=== PATIENT | female | born 1960 | race Caucasian/White ===

== ENCOUNTER 2017-06-21 11:00 | Inpatient (IN) | payer BC, OTHER ==
[2017-06-20 09:00] VITALS: BMI 27.4
[2017-06-26 07:21] LABS: URINE APPEARANCE SLCLOUDY; URINE BILIRUBIN NEGATIVE (NEGATIVE); URINE BLOOD NEGATIVE (NEGATIVE); URINE COLOR YELLOW; URINE GLUCOSE (UA) NEGATIVE (NEGATIVE); URINE KETONE NEGATIVE (NEGATIVE); URINE LEUK ESTERASE NEGATIVE (NEGATIVE); URINE NITRITE NEGATIVE (NEGATIVE); URINE PROTEIN NEGATIVE (NEGATIVE); URINE UROBILINOGEN NEGATIVE mg/dL (0.2-1.0)
[2017-06-26] MEDS ORDERED: BUPIVACAINE HCL/PF 0.5% (5MG/ML) 10 ML VIAL ONE ×2 (07:21→09:08)
[2017-06-26] MEDS ORDERED: THROMBIN (BOVINE) 5,000 UNIT VIAL TP ONE ×2 (07:21→09:08)
[2017-06-26] MEDS ORDERED: GENTAMICIN SO4 80 MG/2 ML VIAL ONE (07:21)
[2017-06-26] MEDS ORDERED: SUCCINYLCHOLINE CHLORIDE 200 MG/10 ML VIAL ONE (07:44)
[2017-06-26] MEDS ORDERED: fentaNYL CITRATE 250 MCG/5 ML VIAL ONE (07:44)
[2017-06-26] MEDS ORDERED: MIDAZOLAM HCL 2 MG/2 ML SINGLE DOSE VIAL ONE (07:45)
[2017-06-26] MEDS ORDERED: ROCURONIUM BROMIDE 50 MG/5 ML VIAL ONE ×2 (07:45→11:30)
--- NOTE | 2017-06-26 08:16 | HP ---
History & Physical Update - History History: No Change - Physical Physical: No Change - Assessment Assessment: No Change - Plan Plan: No Change
[2017-06-26] MEDS ORDERED: VANCOMYCIN 1,000 MG VIAL (RESTRICTED TO ID ONLY) ONE (08:36)
[2017-06-26] MEDS ORDERED: ceFAZolin SODIUM 1 GM VIAL ONE ×3 (08:36→18:11)
[2017-06-26] MEDS ORDERED: ceFAZolin SODIUM 1 GM VIAL IVPB ONE (08:40)
[2017-06-26] MEDS ORDERED: VANCOMYCIN 1,000 MG VIAL (RESTRICTED TO ID ONLY) IVPB ONE (08:45)
[2017-06-26] MEDS ORDERED: DEXAMETHASONE SOD PHOSPHATE 4 MG/1 ML VIAL ONE (08:47)
[2017-06-26] MEDS ORDERED: ONDANSETRON 4 MG/2 ML VIAL ONE (08:47)
[2017-06-26] MEDS ORDERED: LIDOCAINE 1%/EPI 1:100000 (20 ML MULTI DOSE VIAL) INF ONE (08:54)
[2017-06-26] MEDS ORDERED: BACITRACIN 50,000 UNITS VIAL TP ONE (09:07)
[2017-06-26] MEDS ORDERED: LIDOCAINE 1%/EPI 1:100000 (20 ML MULTI DOSE VIAL) ONE (09:08)
[2017-06-26] MEDS ORDERED: HYDROmorphone HCL/PF 1 MG/ML VIAL (FOR PYXIS CHARGING ONLY) ONE (09:14)
[2017-06-26] MEDS ORDERED: HYDROmorphone HCL CARPU-JECT 2 MG/1 ML DISP.SYRIN ONE (09:16)
[2017-06-26] MEDS ORDERED: BUPIVACAINE HCL/PF 0.5% (5MG/ML) 10 ML VIAL IJ ONE (09:34)
[2017-06-26] MEDS ORDERED: DESFLURANE GAS 240 ML BOTTLE IH ONE (12:58)
[2017-06-26] MEDS ORDERED: GLYCOPYRROLATE 0.2 MG/1 ML VIAL ONE (13:38)
[2017-06-26] MEDS ORDERED: NEOSTIGMINE METHYLSULFATE 0.5 MG/ML - 10 ML MDV ONE (13:38)
--- NOTE | 2017-06-26 13:52 | OP ---
Operative Note - Note: Operative Date: 06/26/17 Pre-Operative Diagnosis: Cervical kyphosis Operation: Exploration of spinal fusion with removal of [place] Plate, C7-T1 osteotomies with removal of [place] Hardware, deformity correction and C2-T3 posterior fusion, Anterior approach for deformity correction and C7-T1 reconstruction with Peek Cage and anterior plating Implants: As above Surgeon: Sahil Ahn 1St Pressman: Liane Holder Anesthesiologist/VISUAL MERCHANDISING ASSISTANT: Migue Martinez Anesthesia: General Estimated Blood Loss (mls): 750 Drains & Tubes with Location: MILADY Drains, Volume Out (mls): 400 ([place]) Fluid Volume Replaced (mls): 3,300 Operative Report Dictated: Yes
--- NOTE | 2017-06-26 13:54 | SURG ---
Surgery Shale Planer Operator Helper Note Shale Planer Operator Helper: Liane Holder PA-C Date of Service: 06/26/17 Diagnosis: Cervical kyphosis Procedure: Exploration of spinal fusion with removal of [place] Plate, C7-T1 osteotomies with removal of [place] Hardware, deformity correction and C2-T3 posterior fusion , Anterior approach for deformity correction and C7-T1 reconstruction with Peek Cage and anterior plating I was present for the entirety of the operative procedure. For further detail, please refer to operative report. Visit type - Case Type Case Type: Scheduled Admission - New patient This patient is new to me today: Yes Date on this admission: 06/26/17
[2017-06-26] MEDS ORDERED: ONDANSETRON 4 MG/2 ML VIAL IVPUSH PRN (13:55)
[2017-06-26] MEDS ORDERED: LACTATED RINGERS SOLUTION 1,000 ML IV SCH ×2 (14:00→14:30)
[2017-06-26] MEDS ORDERED: HYDROmorphone *PCA* 10MG/50ML DISP.SYRIN PCA ONE (14:22)
[2017-06-26] MEDS ORDERED: PROMETHAZINE HCL 25 MG/1 ML VIAL IVPUSH PRN (14:23)
[2017-06-26] MEDS ORDERED: HYDROmorphone HCL CARPU-JECT 1 MG/1 ML DISP.SYRIN IVPUSH PRN (14:23)
[2017-06-26] MEDS: HYDROmorphone *PCA* 10MG/50ML DISP.SYRIN PCA SCH (14:40)
[2017-06-26 15:30] LABS: HEMATOCRIT 34.5 % (32.4-45.2); HEMOGLOBIN 11.3 GM/dL (10.7-15.3); MCH 31.2 pg (25.7-33.7); MCHC 32.8 g/dl (32.0-36.0); MEAN CELL VOLUME 95.2 fl (80-96); MEAN PLT VOLUME 7.8 fl (7.5-11.1); PLATELET COUNT 228 K/MM3 (134-434); RBC 3.62 M/mm3 (3.60-5.2); RDW 14.7 % (11.6-15.6); WHITE BLOOD COUNT 9.4 K/mm3 (4.0-10.0)
[2017-06-26] MEDS ORDERED: CEFAZOLIN 1 GM/D5W 50 ML IVPB SCH (18:00)
[2017-06-26] MEDS: CEFAZOLIN 1 GM PUSH 1 GM/10 ML DISP.SYRIN IVPUSH SCH (18:15)
[2017-06-26] MEDS ORDERED: ELECTROLYTE-148 SOLN 1,000 ML IV SCH (20:15)
[2017-06-26] MEDS ORDERED: PT OWN MED DRAWER 7, Y5N ONE (21:48)
[2017-06-26] MEDS ORDERED: PARoxetine HCL 20 MG TABLET (FP) PO SCH (22:00)
[2017-06-26] MEDS ORDERED: traZODone HCL 100 MG TABLET (FP) PO SCH (22:00)
--- NOTE | 2017-06-26 22:07 | CONSULT ---
Consult Consult Specialty:: Pulmonary Critical Care - History of Present Illness Chief Complaint: kyphosis History of Present Illness: Pt is a 56 yo female with h/o cervical kyphosis who is post op day 0 after deformity correction and C2-T3 posterior fusion. Admitted to ICU for post op monitoring Current Medications Gabapentin (Neurontin -) 800 mg PO Q6HPO [facility] Hydromorphone HCl (Dilaudid Injection -) 0.5 mg IVPUSH [id number] PRN PRN Reason: PAIN Hydromorphone HCl (Dilaudid Project Drilling Engineer -) 0 mg NATURAL RESOURCE ECONOMIST NATURAL RESOURCE ECONOMIST [facility] PRN Reason: Protocol Stop: 07/03/17 14:24 Last Admin: 06/26/17 14:40 Dose: 10 mg Cefazolin Sodium (Ancef -) 1 gm in 10 mls @ 100 mls/hr IVPUSH Q8H-IV [facility] Stop: 06/27/17 17:59 Last Admin: 06/26/17 18:15 Dose: 10 mls Parenteral Electrolytes (Plasma-Lyte 148 -) 1,000 mls @ 125 mls/hr IV ASDIR [facility] Last Admin: 06/26/17 14:30 Dose: 750 mls Levothyroxine Sodium 112 mcg/ (Levothyroxine Sodium 25 mcg) 137 mcg PO DAILY@ 0700 [facility] Ondansetron HCl (Zofran Injection) 4 mg IVPUSH Q6H PRN PRN Reason: NAUSEA AND/OR VOMITING Paroxetine HCl (Paxil -) 40 mg PO HS [facility] Potassium Chloride (K-Dur -) 10 meq PO DAILY [facility] Promethazine HCl (Phenergan -) 25 mg PO TID [facility] Promethazine HCl (Phenergan Injection -) 12.5 mg IVPUSH Q6H PRN PRN Reason: NAUSEA-FOR RESCUE AFTER 15 MIN Trazodone HCl (Desyrel -) 100 mg PO HS [facility] - Past Medical History ...LMP Comment: HYSTERECTOMY - Alcohol/Substance Use Hx Alcohol Use: No - Smoking History Smoking history: Current every day smoker Have you smoked in the past 12 months: Yes Aproximately how many cigarettes per day: 5 Home Medications - Allergies Allergies/Adverse Reactions: Allergies Allergy/AdvReac Type Severity Reaction Status Date / Time bethanechol [From Urecholine] Allergy "DECREASED Verified 06/20/17 09:12 HEART RATE,FOAMING AT MOUTH" tomato Allergy "SWELLING, Verified 06/20/17 09:12 ITCHY" - Home Medications Home Medications: Ambulatory Orders Gabapentin [Neurontin -] 800 mg PO QID 06/20/17 Levothyroxine Sodium [Synthroid] 137 mcg PO DAILY 06/20/17 Paroxetine HCl 40 mg PO HS 06/20/17 Potassium Chloride 10 meq PO DAILY 06/20/17 Promethazine HCl [Phenergan -] 25 mg PO TID 06/20/17 Trazodone HCl 100 mg PO HS 06/20/17 Physical Exam Vital Signs: Vital Signs Temperature 98 F 06/26/17 21:00 Pulse Rate 87 06/26/17 21:00 Respiratory Rate 25 H 06/26/17 21:00 Blood Pressure 158/89 06/26/17 21:00 O2 Sat by Pulse Oximetry (%) 98 06/26/17 21:00 Constitutional: Yes: No Distress Eyes: Yes: WNL Neck: Yes: Other (Collar in place, 2 MILADY drains in situ) Cardiovascular: Yes: Regular Rate and Rhythm Respiratory: Yes: CTA Bilaterally Gastrointestinal: Yes: Normal Bowel Sounds, Soft Extremities: Yes: Other (able to move all four ext) Edema: No Peripheral Pulses WNL: Yes Neurological: Yes: WNL Labs: CBC, BMP 06/26/17 14:45 CBCD WBC 9.4 K/mm3 (4.0-10.0) 06/26/17 14:45 RBC 3.62 M/mm3 (3.60-5.2) 06/26/17 14:45 Hgb 11.3 GM/dL (10.7-15.3) 06/26/17 14:45 Hct 34.5 % (32.4-45.2) 06/26/17 14:45 MCV 95.2 fl (80-96) 06/26/17 14:45 MCHC 32.8 g/dl (32.0-36.0) 06/26/17 14:45 RDW 14.7 % (11.6-15.6) 06/26/17 14:45 Plt Count 228 K/MM3 (134-434) 06/26/17 14:45 MPV 7.8 fl (7.5-11.1) 06/26/17 14:45 Assessment/Plan Pt is a 56 yo female with h/o cervical kyphosis who is post op day 0 after deformity correction and C2-T3 posterior fusion. Admitted to ICU for post op monitoring. -pain management -antiemetics -monitor MILADY drain output -clear liquid diet -maintenance fluids -IS -cont cefazolin -trazadone for sleep -SUBHA Brewster Critical Care time: 35 min
[2017-06-26] MEDS: PROMETHAZINE HCL 25 MG TABLET PO SCH (22:34)
[2017-06-26] MEDS: GABAPENTIN 400 MG CAPSULE (FP) PO SCH ×2 (22:34→23:31)
[2017-06-27] MEDS ORDERED: PT OWN MED DRAWER 7, Y5N ONE ×6 (02:45→18:07)
[2017-06-27] MEDS: CEFAZOLIN 1 GM PUSH 1 GM/10 ML DISP.SYRIN IVPUSH SCH ×3 (03:06→21:08)
[2017-06-27] MEDS: GABAPENTIN 400 MG CAPSULE (FP) PO SCH ×4 (06:29→18:09)
[2017-06-27] MEDS: PROMETHAZINE HCL 25 MG TABLET PO SCH ×3 (06:35→22:44)
[2017-06-27 06:51] LABS: HEMATOCRIT 31.1 % (32.4-45.2); HEMOGLOBIN 10.3 GM/dL (10.7-15.3); MCH 31.6 pg (25.7-33.7); MCHC 33.3 g/dl (32.0-36.0); MEAN PLT VOLUME 7.6 fl (7.5-11.1); PLATELET COUNT 216 K/MM3 (134-434); RBC 3.27 M/mm3 (3.60-5.2); RDW 14.8 % (11.6-15.6); WHITE BLOOD COUNT 7.4 K/mm3 (4.0-10.0)
[2017-06-27] MEDS ORDERED: LEVOTHYROXINE 112 MCG, LEVOTHYROXINE 25 MCG PO SCH (07:00)
[2017-06-27 07:25] LABS: ANION GAP 5 (8-16); BLOOD UREA NITROGEN 8 mg/dL (7-18); CALCIUM 8.5 mg/dL (8.5-10.1); CHLORIDE 100 mmol/L (98-107); CO2 36 mmol/L (21-32); CREATININE 0.5 mg/dL (0.55-1.02); GLUCOSE,RANDOM 93 mg/dL (74-106); SODIUM 141 mmol/L (136-145)
--- NOTE | 2017-06-27 07:44 | PN ---
Progress Note (short form) - Note Progress Note: POD #1 Alert. Supine in bed (without pillow as instructed). [place] collar in place. C/o incisional tenderness. Adequate pain control via prn meds. Prior too surgery, c/ o left hand numbness/tingling. Now s/p procedure states she feels it has improved slightly. TOlerating liquid diet. Hasn't been OOB yet. Francoise was dc'd at 7AM. Denies n/v/f/c, CP, SOB, HATFIELD, palpitations or dysphagia. Last Vital Signs Temp Pulse Resp BP Pulse Ox 98.1 F 77 16 95/62 98 06/27/17 06:00 06/27/17 06:00 06/27/17 06:00 06/27/17 06:00 06/26/17 21:00 CBC, BMP 06/27/17 06:25 06/27/17 06:25 Gen: alert. nad. Neck: Anterior and posterior dressings c/d/i. No palpable hematoma. MILADY x2 on bulb suction (serosang) Neuro: CN II-XII grossly intact. Motor: Warhead Maintenance Specialist strength 5/5 bilat. LE strength 5/5 bilat Problem List - Problems (1) Cervical kyphosis Assessment/Plan: POD #1 s/p Exploration of spinal fusion with removal of [place] Plate, C7-T1 osteotomies with removal of [place] Hardware, deformity correction and C2-T3 posterior fusion, Anterior approach for deformity correction and C7-T1 reconstruction with Peek Cage and anterior plating [place] collar to be worn 23 out of 24 hours Physical therapy Trial of void in progress IV abx to remain until MILADY drains removed Pain management Monitor/record MILADY output SCD and early ambulation for DVT ppx Code(s): M40.202 - UNSPECIFIED KYPHOSIS, CERVICAL REGION
--- NOTE | 2017-06-27 08:08 | PN ---
Progress Note (short form) - Note Progress Note: Post op day#1.S/p c7-T1 Anterior decompression with fusion and C2-T3 Posterior decompression with fusion under Ga uneventful.P83,Bp95/62 and Spo2 98% on O2 2l NC.Patient stable and c/o pain score of 3-4/10 on Dilaudid MARKETING PLANNER.Will continue MARKETING PLANNER today and will f/u.
[2017-06-27] MEDS ORDERED: HYDROmorphone *PCA* 10MG/50ML DISP.SYRIN PCA ONE (08:47)
[2017-06-27] MEDS: HYDROmorphone *PCA* 10MG/50ML DISP.SYRIN PCA SCH (08:52)
[2017-06-27] MEDS ORDERED: PATIENT'S OWN MEDICATION (NON-FORMULARY) (Levothyroxine Sodium [Synthroid] 137 MCG) PO SCH (10:00)
[2017-06-27] MEDS ORDERED: POTASSIUM CHLORIDE TABS 10 MEQ TABLET.ER (FP) PO SCH (10:00)
[2017-06-27] MEDS ORDERED: DEXAMETHASONE SOD PHOSPHATE 4 MG/1 ML VIAL IVPUSH ONE ×2 (10:52→18:15)
[2017-06-27] MEDS ORDERED: PROMETHAZINE HCL 25 MG/1 ML VIAL IVPB PRN ×2 (10:52→17:28)
[2017-06-27] MEDS ORDERED: ONDANSETRON 4 MG/2 ML VIAL IVPUSH PRN ×2 (10:52→17:28)
[2017-06-27] MEDS ORDERED: HYDROmorphone *PCA* 10MG/50ML DISP.SYRIN PCA SCH ×2 (10:53→11:07)
[2017-06-27] MEDS ORDERED: SODIUM CHLORIDE 1,000 ML IV SCH (11:15)
[2017-06-27] MEDS ORDERED: SODIUM CHLORIDE 0.9% 1000 ML INFUS.BAG IV ONE (12:12)
[2017-06-27] MEDS ORDERED: HYDROmorphone HCL CARPU-JECT 1 MG/1 ML DISP.SYRIN IVPB PRN ×2 (13:42→17:28)
--- NOTE | 2017-06-27 13:45 | PN ---
Progress Note (short form) - Note Progress Note: Patient too drowsy with Dilaudid ELECTRICAL TIMING DEVICE CALIBRATOR and has pain score of 2-3/10 now.So ELECTRICAL TIMING DEVICE CALIBRATOR is DC and patient put on Dilaudid iv prn.No any anesthesia related problem.Patient DC from the anesthesia care.
--- NOTE | 2017-06-27 14:12 | PN ---
Teaching Attending Note Name of Resident: Memo Ovalles ATTENDING PHYSICIAN STATEMENT I saw and evaluated the patient. I reviewed the resident's note and discussed the case with the resident. I agree with the resident's findings and plan as documented. SUBJECTIVE: Pt seen and examined in the ICU. Groggy after pain medication but arousable. OBJECTIVE: Last Vital Signs Temp Pulse Resp BP Pulse Ox 98.3 F 84 16 92/63 97 06/27/17 08:00 06/27/17 10:45 06/27/17 10:45 06/27/17 10:45 06/27/17 07:50 Intake & Output 06/24/17 06/25/17 06/26/17 06/27/17 23:59 23:59 23:59 23:59 Intake Total 4110 1999 Output Total 2938 1955 Balance 1172 45 Gen: NAD in c-collar Heart: RRR Lung: decreased breath sounds at the bases Abd: soft, nontender Ext: no edema CBC, BMP 06/27/17 06:25 06/27/17 06:25 Active Medications Dexamethasone Sodium Phosphate (Decadron Injection -) 4 mg IVPUSH ONCE PRN PRN Reason: NAUSEA AND/OR VOMITING Gabapentin (Neurontin -) 800 mg PO Q6HPO [facility] Last Admin: 06/27/17 06:29 Dose: 800 mg Hydromorphone HCl (Dilaudid Injection -) 0.5 mg IVPB Q4H PRN PRN Reason: BACK PAIN Cefazolin Sodium (Ancef -) 1 gm in 10 mls @ 100 mls/hr IVPUSH Q8H-IV [facility] Stop: 06/27/17 17:59 Last Admin: 06/27/17 03:06 Dose: 100 mls/hr Parenteral Electrolytes (Plasma-Lyte 148 -) 1,000 mls @ 125 mls/hr IV ASDIR [facility] Last Admin: 06/26/17 14:30 Dose: 750 mls Sodium Chloride (Normal Saline -) 1,000 mls @ 21 mls/hr IV ASDIR [facility] Last Admin: 06/27/17 11:26 Dose: 21 mls/hr Levothyroxine Sodium 112 mcg/ (Levothyroxine Sodium 25 mcg) 137 mcg PO DAILY@ 0700 [facility] Last Admin: 06/27/17 06:54 Dose: 137 mcg Ondansetron HCl (Zofran Injection) 4 mg IVPUSH Q4H PRN PRN Reason: NAUSEA AND/OR VOMITING Paroxetine HCl (Paxil -) 40 mg PO [facility] Last Admin: 06/26/17 22:34 Dose: 40 mg Potassium Chloride (K-Dur -) 10 meq PO DAILY [facility] Promethazine HCl (Phenergan -) 25 mg PO TID [facility] Last Admin: 06/27/17 06:35 Dose: 25 mg Promethazine HCl (Phenergan Injection -) 12.5 mg IVPB Q6H PRN PRN Reason: NAUSEA AND/OR VOMITING Trazodone HCl (Desyrel -) 100 mg PO [facility] Last Admin: 06/26/17 22:34 Dose: 100 mg ASSESSMENT AND PLAN: Cervical Kyphosis s/p Exploration of Spinal Fusion/removal of hardware/C2-T3 posterior fusion/C7- T1 Reconstruction Hypothyroidism - pain control, decrease dose - incentive spirometry - PO per surgery - IVF if not taking PO - empiric antibiotics - monitor drain output - DVT prophylaxis - can monitor on surgical floor if ok with surgery
--- NOTE | 2017-06-27 15:28 | PN ---
Progress Note, Physician History of Present Illness: patient seen and examined at bedside POD#1 s/p Exploration of spinal fusion with removal of [place] Plate, C7-T1 osteotomies with removal of [place] Hardware, deformity correction and C2-T3 posterior fusion, Anterior approach for deformity correction and C7-T1 reconstruction with Peek Cage and anterior plating patient was AAOx3 this morning around 8AM then became groggy but arousable after dilaudid COURT COMMISSIONER - Current Medication List Current Medications: Active Medications Gabapentin (Neurontin -) 800 mg PO Q6HPO [facility] Last Admin: 06/27/17 14:13 Dose: 800 mg Hydromorphone HCl (Dilaudid Injection -) 0.5 mg IVPB Q4H PRN PRN Reason: BACK PAIN Last Admin: 06/27/17 14:33 Dose: 0.5 mg Cefazolin Sodium (Ancef -) 1 gm in 10 mls @ 100 mls/hr IVPUSH Q8H-IV [facility] Stop: 06/27/17 17:59 Last Admin: 06/27/17 14:07 Dose: 100 mls/hr Parenteral Electrolytes (Plasma-Lyte 148 -) 1,000 mls @ 125 mls/hr IV ASDIR [facility] Last Admin: 06/26/17 14:30 Dose: 750 mls Levothyroxine Sodium 112 mcg/ (Levothyroxine Sodium 25 mcg) 137 mcg PO DAILY@ 0700 [facility] Last Admin: 06/27/17 06:54 Dose: 137 mcg Ondansetron HCl (Zofran Injection) 4 mg IVPUSH Q4H PRN PRN Reason: NAUSEA AND/OR VOMITING Paroxetine HCl (Paxil -) 40 mg PO [facility] Last Admin: 06/26/17 22:34 Dose: 40 mg Potassium Chloride (K-Dur -) 10 meq PO DAILY [facility] Last Admin: 06/27/17 14:10 Dose: 10 meq Promethazine HCl (Phenergan -) 25 mg PO TID [facility] Last Admin: 06/27/17 14:14 Dose: 25 mg Promethazine HCl (Phenergan Injection -) 12.5 mg IVPB Q6H PRN PRN Reason: NAUSEA AND/OR VOMITING Trazodone HCl (Desyrel -) 100 mg PO HS [facility] Last Admin: 06/26/17 22:34 Dose: 100 mg - Objective Vital Signs: Vital Signs Temperature 98.5 F 06/27/17 14:00 Pulse Rate 84 06/27/17 15:00 Respiratory Rate 15 06/27/17 15:00 Blood Pressure 85/51 06/27/17 15:00 O2 Sat by Pulse Oximetry (%) 97 06/27/17 07:50 Constitutional: Yes: Well Nourished, No Distress Eyes: Yes: Conjunctiva Clear HENT: Yes: Atraumatic, Normocephalic Neck: Yes: Other (collar in place MILADY drain with serosangenous drainage) Cardiovascular: Yes: Regular Rate and Rhythm Respiratory: Yes: CTA Bilaterally Gastrointestinal: Yes: Soft Musculoskeletal: Yes: Other (global muscle strength 5/5) Edema: No Labs: CBC, BMP 06/27/17 06:25 06/27/17 06:25 Assessment/Plan 56F with history of cervical kyphosis POD#1 s/p Exploration of spinal fusion with removal of [place] Plate, C7-T1 osteotomies with removal of [place] Hardware, deformity correction and C2-T3 posterior fusion, Anterior approach for deformity correction and C7-T1 reconstruction with Peek Cage and anterior plating Cervical kyphosis: Neck collar to be worn 23 out of 24 hours incentive spirometry pain control-will decrease dose of COURT COMMISSIONER and increase interval lockout follow up imaging per neurosurgery PT consult D/C pres[place]-trial of void diet per neurosurgery continue antibiotics while MILADY drain in place continue neurontin Hypothyroidism: continue synthroid Psych: continue paxil Insomnia: continue trazadone FEN: Stop IVF if tolerating diet continue daily potassium advance diet as tolerated PPx: SCDs no GI PPx indicated PT consult Transfer to floors when more awake
[2017-06-27] MEDS ORDERED: ELECTROLYTE-148 SOLN 1,000 ML IV SCH (17:28)
[2017-06-27] MEDS ORDERED: traZODone HCL 50 MG TABLET (FP) ONE (21:14)
[2017-06-27] MEDS ORDERED: PARoxetine HCL 20 MG TABLET (FP) PO SCH (22:00)
[2017-06-27] MEDS ORDERED: traZODone HCL 100 MG TABLET (FP) PO SCH (22:00)
[2017-06-28] MEDS: GABAPENTIN 400 MG CAPSULE (FP) PO SCH ×3 (00:24→13:07)
[2017-06-28] MEDS: HYDROmorphone HCL CARPU-JECT 2 MG/1 ML DISP.SYRIN IVPB PRN ×2 (00:24→09:57)
[2017-06-28] MEDS: CEFAZOLIN 1 GM PUSH 1 GM/10 ML DISP.SYRIN IVPUSH SCH ×2 (02:45→09:59)
[2017-06-28] MEDS ORDERED: LEVOTHYROXINE NA 112 MCG TABLET (FP) ONE (06:29)
[2017-06-28] MEDS ORDERED: LEVOTHYROXINE NA 25 MCG TABLET (FP) ONE (06:29)
[2017-06-28] MEDS: PROMETHAZINE HCL 25 MG TABLET PO SCH ×2 (06:33→14:03)
[2017-06-28] MEDS ORDERED: PT OWN MED DRAWER 7, Y5N ONE ×2 (06:57→09:50)
[2017-06-28] MEDS ORDERED: LEVOTHYROXINE 112 MCG, LEVOTHYROXINE 25 MCG PO SCH (07:00)
[2017-06-28 08:13] LABS: HEMATOCRIT 27.8 % (32.4-45.2); HEMOGLOBIN 8.9 GM/dL (10.7-15.3); MCHC 32.1 g/dl (32.0-36.0); MEAN CELL VOLUME 96.5 fl (80-96); MEAN PLT VOLUME 7.9 fl (7.5-11.1); PLATELET COUNT 171 K/MM3 (134-434); RBC 2.88 M/mm3 (3.60-5.2); RDW 14.8 % (11.6-15.6)
[2017-06-28 08:43] LABS: CHLORIDE 99 mmol/L (98-107); SODIUM 139 mmol/L (136-145)
[2017-06-28 08:48] LABS: ANION GAP 5 (8-16); BLOOD UREA NITROGEN 6 mg/dL (7-18); CALCIUM 7.8 mg/dL (8.5-10.1); CO2 35 mmol/L (21-32); CREATININE 0.5 mg/dL (0.55-1.02); GLUCOSE,RANDOM 102 mg/dL (74-106); MAGNESIUM 2.2 mg/dL (1.8-2.4); PHOSPHOROUS 2.6 mg/dL (2.5-4.9)
[2017-06-28] MEDS ORDERED: POTASSIUM CHLORIDE TABS 10 MEQ TABLET.ER (FP) PO SCH (10:00)
--- NOTE | 2017-06-28 10:00 | PN ---
Progress Note (short form) - Note Progress Note: POD #2 Alert. Supine in bed (without pillow as instructed). [place] collar in place. States her anterior MILADY was accidentally pulled-out yesterday while getting oob. She ambulated to bathroom with RN assist. Voiding spontaneously. Tolerating clear liquid diet. Denies n/v/f/c, CP, SOB, HATFIELD, palpitations or dysphagia. Last Vital Signs Temp Pulse Resp BP Pulse Ox 99.5 F 79 18 116/67 96 06/28/17 05:00 06/28/17 05:00 06/28/17 05:00 06/28/17 05:00 06/28/17 05:00 CBC, BMP 06/28/17 05:48 06/28/17 05:48 Gen: alert. nad. Neck: Anterior and posterior dressings c/d/i. No palpable hematoma. Posterior MILADY 100mL/24hr (serous) Neuro: CN II-XII grossly intact. Motor: Tester Operator Helper strength 5/5 bilat. LE strength 5/5 bilat Problem List - Problems (1) Cervical kyphosis Assessment/Plan: POD #2 s/p Exploration of spinal fusion with removal of [place] Plate, C7-T1 osteotomies with removal of [place] Hardware, deformity correction and C2-T3 posterior fusion, Anterior approach for deformity correction and C7-T1 reconstruction with Peek Cage and anterior plating [place] collar to be worn 23 out of 24 hours Physical therapy Regular diet ordered (may take collar off to eat) IV abx to remain until MILADY drain removed Pain management Monitor/record MILADY output SCD and early ambulation for DVT ppx Code(s): M40.202 - UNSPECIFIED KYPHOSIS, CERVICAL REGION Problem List - Problems (1) Cervical kyphosis Code(s): M40.202 - UNSPECIFIED KYPHOSIS, CERVICAL REGION
--- NOTE | 2017-06-28 10:38 | PN ---
Progress Note (short form) - Note Progress Note: Patient is doing well s/p planned three stage circumferential decompression, realignment and fusion. Anterior MILADY removed overnight. Posterior MILADY output is low and can also be removed. Patient tolerating removal of SERVICE SHOP FOREMAN. PLAN -Continue collar -Pain control -Regular diet -Discharge to hotel when medically stable -Posterior skin clip removal after July 10, 2017 (likely will be done in [place] by PCP)
[2017-06-28 14:49] VITALS: BP 103/54; PULSE 87; TEMP 98.7
== END 2017-06-28 15:58 | disposition home or self-care (01) | DRG 473 ==
LOC: EDSTATUS 11:00 → JSAMEDAYSX 06-26 05:00 → JICU 06-26 20:25 → J4W 06-27 17:00
PROVIDERS: ADMIT Neurological Surgery; ATTEND Neurological Surgery
PROC: 0PS304Z Reposition Cervical Vertebra with Internal Fixation Device, Open Approach (ICD-10-PCS; 2017-06-26)
PROC: B01BZZZ Fluoroscopy of Spinal Cord (ICD-10-PCS; 2017-06-26)
PROC: 0RG1070 Fusion of Cervical Vertebral Joint with Autologous Tissue Substitute, Anterior Approach, Anterior Column, Open Approach (ICD-10-PCS; principal; 2017-06-26 08:00)
DX: M40.202 Unspecified kyphosis, cervical region (principal); M40.45 Postural lordosis, thoracolumbar region; F17.210 Nicotine dependence, cigarettes, uncomplicated; E03.9 Hypothyroidism, unspecified; G47.00 Insomnia, unspecified
CPT/HCPCS: 36415; 72125-TC; 76000-TC; 80048; 81003; 83735; 84100; 85027; 86850; 86900; 86901; 94760; 97116-GP; 97161-GP